=== PATIENT | female | born 1945 | race Caucasian/White ===

== ENCOUNTER 2019-03-12 10:19 | Day surgery (SDC) | payer OTHER ==
[~2019-03-12] VITALS: Ht 154.9 cm; Wt 141.0 kg
[2019-03-12] MEDS ORDERED: LIDOCAINE/PF 2% 5 ML VIAL IM ONE (10:20)
[2019-03-12] MEDS ORDERED: PROPOFOL 1% 20 ML VIAL IVP ONE (10:20)
[2019-03-12] MEDS ORDERED: OMEP20 PO (11:27)
[2019-03-12] MEDS ORDERED: LISI-661 PO (11:27)
[2019-03-12] MEDS ORDERED: DIPH25CA85 PO (11:27)
[2019-03-12] MEDS ORDERED: LEVO100 PO (11:27)
[2019-03-12] MEDS ORDERED: OMEG10005 PO (11:27)
[2019-03-12] MEDS ORDERED: CYAN100072 PO (11:27)
[2019-03-12] MEDS ORDERED: SODIUM CHLORIDE 0.9% 1,000 ML IV ONE (11:30)
== END 2019-03-12 15:15 | disposition home or self-care (01) ==
LOC: SURGERY 10:19
PROVIDERS: ATTEND Student in an Organized Health Care Education/Training Program
DX: D12.3 Benign neoplasm of transverse colon (principal); D12.4 Benign neoplasm of descending colon; D12.5 Benign neoplasm of sigmoid colon; K29.50 Unspecified chronic gastritis without bleeding; K63.5 Polyp of colon; K31.89 Other diseases of stomach and duodenum; I48.91 Unspecified atrial fibrillation; I10 Essential (primary) hypertension; E03.9 Hypothyroidism, unspecified; E66.01 Morbid (severe) obesity due to excess calories; K21.9 Gastro-esophageal reflux disease without esophagitis; Z68.41 Body mass index [BMI] 40.0-44.9, adult; Z79.899 Other long term (current) drug therapy
CPT/HCPCS: 45385; 43239; 45380; 88305; 88312; 88313; 93005; C1769; J2704; J3490

== ENCOUNTER 2023-06-20 07:18 | Day surgery (SDC) | payer OTHER ==
[~2023-06-20] VITALS: Ht 152.4 cm; Wt 144.0 kg
[~2023-06-20 07:18] MED LIST: ACET-3385 PO; ALBU18HF12 IH; APIX5TAB PO; ATOR40TA28 PO; BISA-151 PO; CYAN100072 PO; DIPH25CA85 PO; LEVO100 PO; LISI-893 PO; LORA10TA7 PO; METO-558 PO; OMEG10005 PO; OMEP20 PO; SODIUM CHLORIDE 0.9% 1,000 ML IV ONE; SODIUM CHLORIDE 0.9% 1,000 ML ONE
[2023-06-20] MEDS ORDERED: IBUP-2070 PO (08:09)
[2023-06-20] MEDS ORDERED: FURO40TA5 PO (08:09)
[2023-06-20] MEDS ORDERED: OXYGEN THERAPY IH SCH (09:30)
== END 2023-06-20 10:50 | disposition home or self-care (01) ==
LOC: SURGERY 07:18
PROVIDERS: ATTEND Specialist
DX: K25.9 Gastric ulcer, unspecified as acute or chronic, without hemorrhage or perforation (principal); K29.50 Unspecified chronic gastritis without bleeding; Z90.49 Acquired absence of other specified parts of digestive tract; I10 Essential (primary) hypertension; Z79.899 Other long term (current) drug therapy; K21.9 Gastro-esophageal reflux disease without esophagitis; E78.00 Pure hypercholesterolemia, unspecified; Z88.0 Allergy status to penicillin; Z88.2 Allergy status to sulfonamides; E66.3 Overweight; I48.91 Unspecified atrial fibrillation; Z86.010 Personal history of colon polyps; E66.9 Obesity, unspecified; Z68.44 Body mass index [BMI] 60.0-69.9, adult
CPT/HCPCS: 43239; 88305; 88312; 88313; 93005; C1769; J7030